=== PATIENT | female | born 1950 | race Caucasian/White ===

== ENCOUNTER → 2016-10-27 | Outpatient (CLI) | payer MEDICARE, OTHER | LOC: MAMO 12:43 | DX: Z12.31 Encounter for screening mammogram for malignant neoplasm of breast (principal); Z90.710 Acquired absence of both cervix and uterus | CPT/HCPCS: G0202 ==

== ENCOUNTER 2017-02-24 19:15 | Emergency (ER) | payer MEDICARE, OTHER ==
[2017-02-24 20:11] LABS: RED BLOOD COUNT 4.39 M/UL (4.00-5.10); WHITE BLOOD COUNT 19.9 K/UL (4.5-11.0)
[2017-02-25 03:04] LABS: HEMOGLOBIN 13.3 gm/dl (12.3-15.3); RED BLOOD COUNT 4.21 M/UL (4.00-5.10); WHITE BLOOD COUNT 15.4 K/UL (4.5-11.0)
== END 2017-02-25 07:35 | disposition home or self-care (01) ==
LOC: ER1 19:15
PROVIDERS: Emergency Medicine
DX: E11.65 Type 2 diabetes mellitus with hyperglycemia (principal); E86.0 Dehydration; J44.9 Chronic obstructive pulmonary disease, unspecified; F17.200 Nicotine dependence, unspecified, uncomplicated; Z88.1 Allergy status to other antibiotic agents
CPT/HCPCS: 36415; 80048; 81001; 82009; 82800; 82962; 83880; 85025; 87086; 96361; 96372; 96374; 99285; J0696; J1815; J7050

== ENCOUNTER 2020-12-14 13:53 | Emergency (ER) | payer MEDICARE, OTHER ==
[~2020-12-14 13:53] MED LIST: BREO ELLIPTA 11 EACH INH; CELEXA20 MG PO; CETIRIZINE HCL5 MG PO; CLEOCIN HCL300 MG PO; CRESTOR40 MG PO; LEVAQUIN500 MG PO; LEVOFLOXACIN500 MG PO; MYRBETRIQ50 MG PO; NORVASC 5 MG TAB5 MG PO; NOVOLOG FL100 UNIT/1 SQ; OMEPRAZOLE20 MG PO; RANITIDINE HCL150 MG PO; SINGULAIR10 MG PO; SPIRIVA RESPIMAT4 GM INH; THEO-DUR 300 M300 MG PO; TOLTERODINE TART4 MG PO; TRESIBA FL100 UNIT/1 SQ; TRULICITY1.5 MG/0.5 SQ; VENTOLIN HFA 66.7 GM INH; WELLBUTRIN SR150 M1 PO
[2020-12-14 15:17] LABS: HEMOGLOBIN 14.2 gm/dl (12.3-15.3); RED BLOOD COUNT 4.32 M/UL (4.00-5.10); WHITE BLOOD COUNT 11.3 K/UL (4.5-11.0)
[2020-12-14 15:43] LABS: BUN/CREATININE RATIO 25 (0-10)
[2020-12-14] MEDS ORDERED: MECLIZINE HCL25 MG PO (18:33)
[2020-12-14] MEDS ORDERED: BACTRIM DS TAB1 EACH PO (18:33)
[2020-12-14] MEDS ORDERED: ONDANSETRON ODT4 MG SL (18:33)
== END 2020-12-14 17:34 | disposition home or self-care (01) ==
LOC: ER1 13:53
PROVIDERS: Physician Assistant
DX: N39.0 Urinary tract infection, site not specified (principal); E11.9 Type 2 diabetes mellitus without complications; R42 Dizziness and giddiness; J44.9 Chronic obstructive pulmonary disease, unspecified; I10 Essential (primary) hypertension; F17.200 Nicotine dependence, unspecified, uncomplicated; Z88.5 Allergy status to narcotic agent; Z88.1 Allergy status to other antibiotic agents
CPT/HCPCS: 70450; 71045; 80053; 81001; 82550; 82553; 82962; 83874; 84484; 85025; 87077; 87086; 93005; 96374; 96375; 96376; 99284; J2405; J7040

== ENCOUNTER → 2021-02-05 | Outpatient (CLI) | payer MEDICARE, OTHER ==
[~2021-02-05] MED LIST changes: +BACTRIM DS TAB1 EACH PO; +MECLIZINE HCL25 MG PO; +ONDANSETRON ODT4 MG SL
== END ==
LOC: KOH-I 11:30
DX: F17.210 Nicotine dependence, cigarettes, uncomplicated (principal); R91.8 Other nonspecific abnormal finding of lung field
CPT/HCPCS: 71271

== ENCOUNTER → 2021-05-15 | Outpatient (CLI) | payer OTHER ==
[2021-05-15 12:51] LABS: HEMOGLOBIN 14.7 gm/dl (12.3-15.3); RED BLOOD COUNT 4.48 M/UL (4.00-5.10); WHITE BLOOD COUNT 6.7 K/UL (4.5-11.0)
== END ==
LOC: LAB 12:18
PROVIDERS: Family Medicine
DX: E78.2 Mixed hyperlipidemia (principal)
CPT/HCPCS: 36415; 80053; 80061; 85027

== ENCOUNTER 2021-10-13 15:29 | Inpatient (IN) | payer MEDICARE, OTHER ==
[~2021-10-13] VITALS: Ht 165.1 cm; Wt 51.4 kg
[~2021-10-13 15:29] MED LIST changes: -AZELASTINE137 MCG/0.; -CIPROFLOXACIN500 M1 PO; -FEXOFENADINE H180 MG PO; -FLONASE ALLER15.8 ML; -HYDROCODON-ACE1 EAC4 PO; -LEVOFLOXACIN250 MG PO; -MUCUS RELIEF600 MG PO
[2021-10-13] MEDS ORDERED: TRESIBA FL100 UNIT/1 SQ (17:20)
[2021-10-13] MEDS ORDERED: NOVOLOG FL100 UNIT/1 SQ (17:21)
[2021-10-13] MEDS ORDERED: AZELASTINE137 MCG/0. (17:22)
[2021-10-13] MEDS ORDERED: CIPROFLOXACIN500 M1 PO (17:23)
[2021-10-13] MEDS ORDERED: FLONASE ALLER15.8 ML (17:24)
[2021-10-13] MEDS ORDERED: MUCUS RELIEF600 MG PO (17:24)
[2021-10-13] MEDS ORDERED: FEXOFENADINE H180 MG PO (17:24)
[2021-10-13] MEDS ORDERED: OMEPRAZOLE20 MG PO (17:25)
[2021-10-13] MEDS ORDERED: BREO ELLIPTA 11 EACH INH (17:25)
[2021-10-13] MEDS ORDERED: TRULICITY1.5 MG/0.5 SQ (17:25)
[2021-10-13] MEDS ORDERED: MECLIZINE HCL25 MG PO (17:26)
[2021-10-14 05:26] LABS: BUN/CREATININE RATIO 29 (0-10)
[2021-10-14 05:32] LABS: HEMOGLOBIN 14.1 gm/dl (12.3-15.3); RED BLOOD COUNT 4.31 M/UL (4.00-5.10)
[2021-10-15 06:58] LABS: HEMOGLOBIN 13.3 gm/dl (12.3-15.3); RED BLOOD COUNT 4.12 M/UL (4.00-5.10)
[2021-10-16 06:24] LABS: HEMOGLOBIN 13.3 gm/dl (12.3-15.3); RED BLOOD COUNT 4.11 M/UL (4.00-5.10)
[2021-10-16] MEDS ORDERED: LEVOFLOXACIN250 MG PO (16:34)
[2021-10-16] MEDS ORDERED: HYDROCODON-ACE1 EAC4 PO (16:34)
== END 2021-10-16 18:37 | disposition home health service (06) | DRG 522 ==
LOC: ER1 15:29 → MED SURG 4 16:57 → CDU 16:57 → MED SURG 4 23:41
PROVIDERS: Internal Medicine; Orthopaedic Surgery; ADMIT Internal Medicine
PROC: 0SRS0J9 Replacement of Left Hip Joint, Femoral Surface with Synthetic Substitute, Cemented, Open Approach (ICD-10-PCS; principal; 2021-10-14 10:00)
DX: S72.012A Unspecified intracapsular fracture of left femur, initial encounter for closed fracture (principal); N30.90 Cystitis, unspecified without hematuria; W01.0XXA Fall on same level from slipping, tripping and stumbling without subsequent striking against object, initial encounter; Z20.822 Contact with and (suspected) exposure to COVID-19; F17.200 Nicotine dependence, unspecified, uncomplicated; E11.649 Type 2 diabetes mellitus with hypoglycemia without coma; K21.9 Gastro-esophageal reflux disease without esophagitis; J44.9 Chronic obstructive pulmonary disease, unspecified; F41.9 Anxiety disorder, unspecified; F32.A Depression, unspecified; E78.5 Hyperlipidemia, unspecified; Z88.8 Allergy status to other drugs, medicaments and biological substances; Z88.6 Allergy status to analgesic agent; Z83.3 Family history of diabetes mellitus; Z79.899 Other long term (current) drug therapy; Z87.440 Personal history of urinary (tract) infections; Z71.6 Tobacco abuse counseling; Z79.4 Long term (current) use of insulin
CPT/HCPCS: 36415; 72170; 80053; 81001; 82962; 83735; 84100; 85025; 85027; 85610; 85730; 87086; 93005; 94640; 94664; 94760; 96372; 97116; 97116-GP-CQ; 97161; 97166; 97535; 99285; C1776; J1100; J1650; J2704; J2795; J3010; J3370; J7030; J7120; U0002

== ENCOUNTER → 2021-10-13 | Outpatient (CLI) | payer OTHER ==
[~2021-10-13] MED LIST changes: +AZELASTINE137 MCG/0.; +CIPROFLOXACIN500 M1 PO; +FEXOFENADINE H180 MG PO; +FLONASE ALLER15.8 ML; +HYDROCODON-ACE1 EAC4 PO; +LEVOFLOXACIN250 MG PO; +MUCUS RELIEF600 MG PO; -NORVASC 5 MG TAB5 MG PO; +NORVASC5 MG PO; +ST. JOSEPH ASPI81 M1 PO; +ZETIA10 MG PO
[2021-10-13 10:59] LABS: HEMOGLOBIN 15.8 gm/dl (12.3-15.3); RED BLOOD COUNT 4.72 M/UL (4.00-5.10); WHITE BLOOD COUNT 6.8 K/UL (4.5-11.0)
[2021-10-13 11:46] LABS: BUN/CREATININE RATIO 31 (0-10)
--- NOTE | 2021-10-16 19:18 | NUR ---
REPORT CALLED TO [facility] AT THIS TIME.
== END ==
LOC: RAD 10:28
PROVIDERS: Nurse Practitioner Family
DX: R31.9 Hematuria, unspecified (principal); M54.50 Low back pain, unspecified; G89.29 Other chronic pain; M25.552 Pain in left hip; Z91.81 History of falling; M79.659 Pain in unspecified thigh; R41.0 Disorientation, unspecified; J30.1 Allergic rhinitis due to pollen; E11.9 Type 2 diabetes mellitus without complications; R79.89 Other specified abnormal findings of blood chemistry; E78.2 Mixed hyperlipidemia; K59.09 Other constipation; R41.3 Other amnesia; E53.8 Deficiency of other specified B group vitamins; E55.9 Vitamin D deficiency, unspecified; M51.36 Other intervertebral disc degeneration, lumbar region; M47.816 Spondylosis without myelopathy or radiculopathy, lumbar region; S72.012A Unspecified intracapsular fracture of left femur, initial encounter for closed fracture
CPT/HCPCS: 36415; 72100; 73502; 73552; 74018; 80053; 80061; 82140; 82607; 83036; 84439; 84443; 85025

== ENCOUNTER 2021-11-23 18:08 | Emergency (ER) | payer MEDICARE, OTHER ==
[~2021-11-23 18:08] MED LIST changes: +AZELASTINE137 MCG/0.; +CIPROFLOXACIN500 M1 PO; +FEXOFENADINE H180 MG PO; +FLONASE ALLER15.8 ML; +HYDROCODON-ACE1 EAC4 PO; +LEVOFLOXACIN250 MG PO; +MUCUS RELIEF600 MG PO
[2021-11-23 18:59] LABS: HEMOGLOBIN 11.7 gm/dl (12.3-15.3); RED BLOOD COUNT 3.64 M/UL (4.00-5.10); WHITE BLOOD COUNT 8.5 K/UL (4.5-11.0)
== END 2021-11-24 02:50 | disposition short-term general hospital (02) ==
LOC: ER1 18:08
PROVIDERS: Physician Assistant
DX: I50.9 Heart failure, unspecified (principal); N17.9 Acute kidney failure, unspecified; N13.2 Hydronephrosis with renal and ureteral calculous obstruction; Z20.822 Contact with and (suspected) exposure to COVID-19; F17.210 Nicotine dependence, cigarettes, uncomplicated; E11.9 Type 2 diabetes mellitus without complications; L03.116 Cellulitis of left lower limb; L03.115 Cellulitis of right lower limb; Z79.4 Long term (current) use of insulin
CPT/HCPCS: 71045; 80053; 81001; 82550; 82553; 82962; 83605; 83880; 84484; 85025; 85379; 87040; 93005; 99285; U0002